=== PATIENT | male | born 1960 | race Caucasian/White ===

== ENCOUNTER → 2017-04-20 | Day surgery (SDC) | payer BC ==
[2017-04-09 08:54] VITALS: BMI 23.9
[~2017-04-20] MED LIST: BUPIVACAINE (PF) 0.25% 30 ML VIAL SQ ONE; GLYCOPYRROLATE 0.2 MG/ML 2 ML VIAL ONE; HEPARIN SODIUM,PORCINE 5,000 UNIT/ML 1 ML VIAL SQ ONE; HYDROcodone/APAP 7.5-325MG 1 EACH TAB PO ONE; HYDROmorphone (PF) 1 MG/ML ONE; LACTATED RINGERS 1,000 ML IV SCH; LIDOCAINE 1% INJ 10MG/ML (20 ML MDV) ONE; MIDAZOLAM 2 MG/2 ML VIAL ONE; NEOSTIGMINE 1 MG/ML 10 ML VIAL ONE; ONDANSETRON 4 MG/2 ML VIAL IVP ONE; PROPOFOL 10 MG/ML 20 ML VIAL IV ONE; ROCURONIUM BROMIDE 10 MG/ML 10 ML VIAL IV ONE; SCOPOLAMINE 1.5MG/72HR PATCH TRANSDERM ONE; SUCCINYLCHOLINE CHLORIDE 100 MG/5 ML SYR IV ONE; ceFAZolin IN SWFI 2 GM/20 ML SYRINGE IVP ONE; fentaNYL (PF) 50 MCG/ML 2 ML AMP ONE
[2017-04-20] MEDS: LIDOCAINE 1% 20 ML VIAL (10MG/ML) FOR IV START INTRADERMA PRN ×2 (10:27→10:36)
--- NOTE | 2017-04-20 10:55 | P.GSHP ---
History of Present Illness H&P Date: 04/20/17 Chief Complaint: Right inguinal hernia 's is a 56-year-old male referred from Dr. Konrad Davis patient has complaints of right groin mass. He was seen in the office and found have a reducible right inguinal hernia. He presents today for laparoscopic robotic- assisted repair of right inguinal hernia. Past Medical History Past Medical History: GERD/Reflux, Hyperlipidemia, Hypertension Additional Past Medical History / Comment(s): inguinal hernia,lost 25lbs and monitors diet-no tx for b/p,left torn rotator cuff History of Any Multi-Drug Resistant Organisms: None Reported Past Surgical History: Tonsillectomy Additional Past Surgical History / Comment(s): EGD,COLONOSCOPY Past Anesthesia/Blood Transfusion Reactions: Motion Sickness Additional Past Anesthesia/Blood Transfusion Reaction / Comment(s): no hx blood transfusion Smoking Status: Former smoker - Past Family History Brother(s) Family Medical History: Cancer Additional Family Medical History / Comment(s): ESOPHAGEAL CANCER,brain aneurysm Medications and Allergies Home Medications Medication Instructions Recorded Confirmed Type Multivitamin [Men's Multi-Vitamin] 1 each PO DAILY 11/14/15 04/09/17 History Aspirin 81 mg PO DAILY 04/09/17 04/09/17 History Meclizine HCl 25 mg PO DAILY PRN 04/09/17 04/09/17 History Naproxen [Naprosyn] 500 mg PO Q12HR PRN 04/09/17 04/09/17 History Pantoprazole Sodium 40 mg PO DAILY PRN 04/09/17 04/20/17 History Allergies Allergy/AdvReac Type Severity Reaction Status Date / Time prednisone AdvReac Severe severe Verified 04/20/17 10:26 hiccups Surgical - Exam Vital Signs Temp Pulse Resp BP Pulse Ox 98.8 F 59 L 18 149/78 99 04/20/17 10:23 04/20/17 10:23 04/20/17 10:23 04/20/17 10:23 04/20/17 10:23 - General well developed, no distress - Eyes PERRL - ENT normal pinna - Neck no masses - Respiratory normal expansion - Cardiovascular Rhythm: regular - Abdomen Abdomen: soft, non tender Assessment and Plan Assessment: Right inguinal hernia. We'll perform laparoscopic robotic-assisted repair.
[2017-04-20] MEDS: HYDROmorphone 0.5 MG/0.5 ML SYRINGE IVP PRN ×4 (12:30→13:10)
--- NOTE | 2017-04-20 12:30 | P.OP ---
Date of Procedure: 04/20/17 Preoperative Diagnosis: Right inguinal hernia Postoperative Diagnosis: Anal hernia Incarcerated umbilical hernia Procedure(s) Performed: Scopic robotic system repair of right inguinal hernia Laparoscopic repair of incarcerated umbilical hernia Excision incarcerated fat Anesthesia: INDERJIT Surgeon: Ton Davies Estimated Blood Loss (ml): 5 Pathology: other (Incarcerated umbilical fat) Condition: stable Disposition: PACU Description of Procedure: The patient's placed on the operating table in the supine position. The patient received general anesthesia. The patient's abdomen was prepped and draped in usual sterile fashion. The skin was anesthetized 1% local Xylocaine at the incision sites. Using an 11 blade a skin incision was made at the umbilicus. Patient was found have a small incarcerated umbilical hernia. The incarcerated fat within then the hernia was excised with the hernia sac. The fascia was grasped with a Desirae and then the peritoneal cavity was entered with the Veress needle. Position of the Veress needle was confirmed with a positive drop test. After adequate insufflation a 5 mm trocar was placed into the peritoneal cavity. The Laparoscope was placed the peritoneal cavity. And a robotic 8 mm trocar was placed in the right lateral position and then another 8 mm robotic trochars placed in the left lateral position. The original 5 mm trocar was exchanged for a 12 mm trocar. The patient was placed in reverse Trendelenburg and then the patient was docked to the robot. Next the peritoneum over top of the hernia was incised and then using blunt and sharp dissection and electrocautery the hernia sac was dissected free from the floor of the inguinal canal. The hernia sac was completely reduced into the peritoneal cavity. And then using the Pro toeing stockings mesh the hernia was repaired. The peritoneum was then sutured with 20V lock suture. The patient was then undocked the robot. The needle was withdrawn from the peritoneal cavity. The umbilical hernia site was closed with 0 Ethibond suture. The skin was closed interrupted 3-0 Monocryl suture. Dermabond dressing was applied. Patient was sent to recovery in stable condition.
[2017-04-20 12:31] VITALS: RESP 16; TEMP 98.6
[2017-04-20 16:41] VITALS: BP 137/79; PULSE 69
== END ==
LOC: OR 09:56
PROVIDERS: ATTEND Surgery
DX: K42.0 Umbilical hernia with obstruction, without gangrene (principal); K45.8 Other specified abdominal hernia without obstruction or gangrene; K21.9 Gastro-esophageal reflux disease without esophagitis; E78.5 Hyperlipidemia, unspecified; F17.210 Nicotine dependence, cigarettes, uncomplicated; I10 Essential (primary) hypertension; Z80.0 Family history of malignant neoplasm of digestive organs; Z79.82 Long term (current) use of aspirin; Z88.8 Allergy status to other drugs, medicaments and biological substances
CPT/HCPCS: 49653; 49659; S2900; 88302

== ENCOUNTER 2018-05-25 10:21 | Day surgery (SDC) | payer BC ==
[2018-05-20 08:58] VITALS: BMI 25.8
[~2018-05-25 10:21] MED LIST changes: -BUPIVACAINE (PF) 0.25% 30 ML VIAL SQ ONE; +DEXAMETHASONE SOD PHOSPHATE 10 MG/ML 1 ML VIAL IV ONE; -GLYCOPYRROLATE 0.2 MG/ML 2 ML VIAL ONE; -HYDROcodone/APAP 7.5-325MG 1 EACH TAB PO ONE; -HYDROmorphone (PF) 1 MG/ML ONE; +HYDROmorphone 0.5 MG/0.5 ML SYRINGE IVP PRN; +LIDOCAINE 1% 20 ML VIAL (10MG/ML) FOR IV START INTRADERMA PRN; -LIDOCAINE 1% INJ 10MG/ML (20 ML MDV) ONE; +MIDAZOLAM (PF) 2 MG/2 ML VIAL IV PRN; -MIDAZOLAM 2 MG/2 ML VIAL ONE; -NEOSTIGMINE 1 MG/ML 10 ML VIAL ONE; -PROPOFOL 10 MG/ML 20 ML VIAL IV ONE; -ROCURONIUM BROMIDE 10 MG/ML 10 ML VIAL IV ONE; -SUCCINYLCHOLINE CHLORIDE 100 MG/5 ML SYR IV ONE; -fentaNYL (PF) 50 MCG/ML 2 ML AMP ONE
[2018-05-25 11:29] VITALS: TEMP 97.6
[2018-05-25] MEDS ORDERED: LACTATED RINGERS 1,000 ML IV ONE ×4 (11:31)
--- NOTE | 2018-05-25 11:55 | P.GSHP ---
History of Present Illness H&P Date: 05/25/18 Chief Complaint: Recurrent right inguinal hernia This a 57-year-old male who presents today for open repair of recurrent right inguinal hernia. Patient developed a tender mass in his right groin. Past Medical History Past Medical History: GERD/Reflux, Hypertension Additional Past Medical History / Comment(s): inguinal hernia, TOOTH EXTRACTION 05/13/18, lost 25lbs and monitors diet-no tx for b/p, OCCASIONAL VERTIGO History of Any Multi-Drug Resistant Organisms: None Reported Past Surgical History: Hernia Repair, Tonsillectomy Additional Past Surgical History / Comment(s): EGD,COLONOSCOPY Past Anesthesia/Blood Transfusion Reactions: Motion Sickness Additional Past Anesthesia/Blood Transfusion Reaction / Comment(s): no hx blood transfusion Smoking Status: Current every day smoker - Past Family History Brother(s) Family Medical History: Cancer Additional Family Medical History / Comment(s): ESOPHAGEAL CANCER,brain aneurysm Medications and Allergies Home Medications Medication Instructions Recorded Confirmed Type Aspirin 81 mg PO DAILY 04/09/17 05/20/18 History Meclizine HCl 25 mg PO DAILY PRN 04/09/17 05/20/18 History Pantoprazole Sodium 40 mg PO DAILY PRN 04/09/17 05/20/18 History Amoxicillin 500 mg PO Q12HR 05/20/18 05/20/18 History Allergies Allergy/AdvReac Type Severity Reaction Status Date / Time prednisone AdvReac Severe severe Verified 05/20/18 08:51 hiccups Surgical - Exam Vital Signs Temp Pulse Resp BP Pulse Ox 97.6 F 55 L 18 127/65 99 05/25/18 11:27 05/25/18 11:27 05/25/18 11:27 05/25/18 11:27 05/25/18 11:27 - General well developed, well nourished, no distress - Eyes PERRL - ENT normal pinna - Neck no masses - Respiratory normal expansion - Cardiovascular Rhythm: regular - Abdomen Abdomen: soft, non tender Assessment and Plan Assessment: Recurrent radial hernia. We'll perform open repair.
[2018-05-25 12:03] VITALS: RESP 16
--- NOTE | 2018-05-25 12:04 | P.ONQ ---
Anesthesiology Proc Note - PNB - Peripheral Nerve Block Performed Right Transversus Abdominis Single Time Out Performed: Yes Procedure Start Time: 11:54 Procedure Stop Time: 12:02 Indication: Acute Post-Operative Pain, Requested by physician (Dr Davies) Sedation Type: Sedate with meaningful contact maintained Preparation: Sterile Prep Position: Supine Needle Types: Facet Needle Size: 100mm (4") Needle Gauge: 20 Technique: Ultrasound (Ultrasound image saved) Injectate: 0.5% Ropivacaine (see comment for volume) (30 mls) Blood Aspirated: No Pain Paresthesia on Injection Noted: No Resistance on Injection: Normal Events: Uneventful and Well Tolerated
[2018-05-25] MEDS ORDERED: PROPOFOL 10 MG/ML 20 ML VIAL IV ONE (12:21)
[2018-05-25] MEDS ORDERED: SUCCINYLCHOLINE CHLORIDE 100 MG/5 ML SYR IV ONE (12:21)
[2018-05-25] MEDS ORDERED: GLYCOPYRROLATE 0.2 MG/ML 2 ML VIAL ONE (12:21)
[2018-05-25] MEDS ORDERED: ROPIVACAINE 5 MG/ML 30 ML VIAL ONE (12:21)
[2018-05-25] MEDS ORDERED: NEOSTIGMINE 1 MG/ML 10 ML VIAL ONE (12:21)
[2018-05-25] MEDS ORDERED: LIDOCAINE 1% INJ 10MG/ML (20 ML MDV) ONE (12:21)
[2018-05-25] MEDS ORDERED: ROCURONIUM BROMIDE 10 MG/ML 10 ML VIAL IV ONE (12:21)
[2018-05-25] MEDS ORDERED: fentaNYL (PF) 50 MCG/ML 2 ML AMP ONE (12:21)
[2018-05-25] MEDS ORDERED: KETOROLAC 30 MG/ML 1 ML VIAL ONE (12:21)
[2018-05-25] MEDS ORDERED: BUPIVACAIN-EPI 0.5%-1:200,000 30 ML VIAL SQ ONE (12:53)
--- NOTE | 2018-05-25 13:05 | P.OP ---
Date of Procedure: 05/25/18 Preoperative Diagnosis: Recurrent left inguinal hernia Postoperative Diagnosis: Recurrent indirect left inguinal hernia Procedure(s) Performed: Open repair of recurrent left inguinal indirect inguinal hernia Anesthesia: INDERJIT Surgeon: Ton Davies Estimated Blood Loss (ml): 5 Pathology: none sent Condition: stable Disposition: PACU Description of Procedure: Patient's placed on the operating table in the supine position. He received general anesthesia. His abdomen was prepped and draped usual sterile fashion. The skin was anesthetized 1% local Xylocaine. A standard inguinal incision was made. And then using electrocautery the subcutaneous tissues were divided. The fascia external oblique was exposed. A week later retractors placed a wound. And then a incision on the fascia was made then using Metzenbaum scissors the fascia of the external oblique was opened. The cord section was dissected away from the floor of the inguinal canal. There was a recurrent indirect inguinal hernia seen medially to the cord. The hernia sac was dissected and inverted back into the peritoneal cavity. Using the Prolene hernia mesh plug the inferior leads were placed in the position of the indirect hernia space the superior leaf was attached to the pubic tubercle medially with 2-0 Prolene. Xena's fascia was closed with 2-0 Vicryl. Skin was closed interrupted 3-0 Monocryl suture. Dermabond dressing was applied. Patient top procedure well and was sent to recovery in stable condition.. The lateral leaf was incised and wrapped around the cord structures. And secured with 2-0 Prolene suture.
[2018-05-25 14:10] VITALS: BP 163/75; PULSE 61
--- NOTE | 2018-05-27 16:50 | CDI ---
Date: 05/27/18 CDS/Accounting Administrator Name: Jacquie Casey Phone: If any questions, call Geovanna Shipman Sales Development Coordinator at [phone] Patient Name: Tiago Pruett Admit Date: 05/25/18 Discharge Date: 05/25/18 ATTENTION: The [facility] Coding Staff appreciate your assistance in clarifying documentation. Please respond to the clarification below the line at the bottom and electronically sign. The [facility] Coding staff will review the response and follow-up if needed. Please note: Queries are made part of the Legal Health Record. If you have any questions, please contact the Sales Development Coordinator. Dear Dr. Davies, Please provide clarification as to the laterality of the hernia. H&P states right hernia The operative report states left hernia. The Anesth Block note states that the injection was given on the right. Please clarify/amend your op report. Thank you for your kind consideration. ____ The operative note has been changed to right inguinal hernia MTDD
== END 2018-05-25 14:58 | disposition home or self-care (01) ==
LOC: OR 10:21
PROVIDERS: ATTEND Surgery
DX: K40.91 Unilateral inguinal hernia, without obstruction or gangrene, recurrent (principal); K21.9 Gastro-esophageal reflux disease without esophagitis; I10 Essential (primary) hypertension; F17.200 Nicotine dependence, unspecified, uncomplicated; Z80.0 Family history of malignant neoplasm of digestive organs; Z79.82 Long term (current) use of aspirin; Z88.8 Allergy status to other drugs, medicaments and biological substances
CPT/HCPCS: 49520; 64486; C1781; J1644; J2710; J2405; J2001; J3010; J1885; J2795; J0330; J2704; J0690; J2250

== ENCOUNTER → 2021-05-05 | Outpatient (CLI) | payer BC ==
--- NOTE | 2021-05-06 04:11 | MR ---
EXAMINATION TYPE: MR brain and iac wo/w con DATE OF EXAM: 05/05/2021 COMPARISON: None HISTORY: Right severly asymmetric SNHL CONTRAST: Standard multiplanar, multisequence MRI departmental protocol images were obtained without contrast a nd with 7 mL intravenous Gadavist gadolinium contrast. Ventricles are fairly normal size. There is no mass effect or midline shift. There is no sign of intr acranial hemorrhage. Diffusion images show no evidence of acute infarct. There is 5 mm focus of incre ased signal in the white matter left posterior temporal lobe. The brainstem appears intact. There is mucosal thickening in the frontal ethmoid and sphenoid and maxillary sinuses. The sella turcica appea rs normal. Corpus callosum is intact. Thin sections through the posterior fossa show normal internal auditory canals. The acoustic nerve an d vestibular nerve appear normal. There is no evidence of cerebellopontine angle mass. Contrast images show no pathologic enhancement. IMPRESSION: There is pansinusitis. No focal posterior fossa abnormality. Small isolated focus of increased signal in the left posterior temporal lobe white matter could relat e to microvascular ischemia. No evidence of cortical infarct.
== END | disposition home or self-care (01) ==
LOC: RADMRIMAIN 17:44
PROVIDERS: ATTEND Nurse Practitioner Family
DX: J32.4 Chronic pansinusitis (principal); R90.89 Other abnormal findings on diagnostic imaging of central nervous system
CPT/HCPCS: 70553; A9585

== ENCOUNTER 2021-07-08 12:22 | Emergency (ER) | payer BC ==
[2021-07-08 12:42] VITALS: RESP 18
[2021-07-08] MEDS ORDERED: IBUPROFEN 600 MG TAB PO STA (13:16)
[2021-07-08] MEDS ORDERED: ACETAMINOPHEN TAB 500 MG TAB PO STA (13:16)
--- NOTE | 2021-07-08 13:20 | ED ---
General Adult HPI - General Source: patient, family, RN notes reviewed, old records reviewed Mode of arrival: ambulatory <Brent Jordan - Last Filed: 07/08/21 14:47> <Collin Boss - Last Filed: 07/08/21 15:45> - General Chief complaint: Chest Pain Stated complaint: Chest Pain, Shortness of Breath Time Seen by Provider: 07/08/21 12:45 - History of Present Illness Initial comments: This is a 60-year-old male who presents emergency department stating that last night he started coughing quite a bit and he states is extremely hard and then he started having sharp chest pains all over his chest. Patient states he was also feeling very hot but he wasn't sweating. Patient states he also had the chills. Patient denies any abdominal pain patient denies any nausea vomiting. Patient states this morning he continued to have the chills and feeling hot he has occasional sharp chest pains. Patient states that continues to cough not as bad as last night though. Patient states he did give the COVID vaccine and he also got the influenza vaccine. Patient complains of a mild headache. (Brent Jordan) - Related Data Home Medications Medication Instructions Recorded Confirmed Famotidine [Pepcid] 40 mg PO DAILY PRN 07/08/21 07/08/21 Allergies Allergy/AdvReac Type Severity Reaction Status Date / Time prednisone AdvReac Severe severe Verified 07/08/21 13:45 hiccups Review of Systems ROS Other: All systems not noted in ROS Statement are negative. <Brent Jordan - Last Filed: 07/08/21 14:47> ROS Other: All systems not noted in ROS Statement are negative. <Collin Boss - Last Filed: 07/08/21 15:45> ROS Statement: Those systems with pertinent positive or pertinent negative responses have been documented in the HPI. Past Medical History Past Medical History: GERD/Reflux, Hyperlipidemia, Hypertension Additional Past Medical History / Comment(s): inguinal hernia, TOOTH EXTRACTION 05/13/18, lost 25lbs and monitors diet-no tx for b/p, OCCASIONAL VERTIGO History of Any Multi-Drug Resistant Organisms: None Reported Past Surgical History: Hernia Repair, Tonsillectomy Additional Past Surgical History / Comment(s): EGD,COLONOSCOPY Past Anesthesia/Blood Transfusion Reactions: Motion Sickness Additional Past Anesthesia/Blood Transfusion Reaction / Comment(s): no hx blood transfusion Past Psychological History: No Psychological Hx Reported Smoking Status: Never smoker Past Alcohol Use History: Occasional Past Drug Use History: None Reported - Past Family History Brother(s) Family Medical History: Cancer Additional Family Medical History / Comment(s): ESOPHAGEAL CANCER,brain aneurysm <Matt Jordane - Last Filed: 07/08/21 14:47> General Exam <Jordan,Brent - Last Filed: 07/08/21 14:47> - General Exam Comments Initial Comments: GENERAL: Patient is well-developed and well-nourished. Patient is nontoxic and well-hydrated and is in mild distress. ENT: Neck is soft and supple. No significant lymphadenopathy is noted. Oropharynx is clear. Moist mucous membranes. Neck has full range of motion without eliciting any pain. EYES: The sclera were anicteric and conjunctiva were pink and moist. Extraocular movements were intact and pupils were equal round and reactive to light. Eyelids were unremarkable. PULMONARY: Unlabored respirations. Good breath sounds bilaterally. No audible rales rhonchi or wheezing was noted. CARDIOVASCULAR: There is a regular rate and rhythm without any murmurs gallops or rubs. ABDOMEN: Soft and nontender with normal bowel sounds. SKIN: Skin is clear with no lesions or rashes and otherwise unremarkable. NEUROLOGIC: Patient is alert and oriented x3. Cranial nerves II through XII are grossly intact. Motor and sensory are also intact. Normal speech, volume and content. Symmetrical smile. MUSCULOSKELETAL: Normal extremities with adequate strength and full range of motion. No lower extremity swelling or edema. No calf tenderness. LYMPHATICS: No significant lymphadenopathy is noted PSYCHIATRIC: Normal psychiatric evaluation. (Brent Jordan) Course Vital Signs 07/08/21 07/08/21 12:36 15:09 Temperature 101.5 F H 101.2 F H Pulse Rate 65 75 Respiratory 18 18 Rate Blood Pressure 178/65 135/61 O2 Sat by Pulse 98 95 Oximetry Medical Decision Making - Lab Data Result diagrams: 07/08/21 13:28 07/08/21 13:28 <JordanSergio ruedaBrent - Last Filed: 07/08/21 14:47> - Lab Data Result diagrams: 07/08/21 13:28 07/08/21 13:28 - Radiology Data Radiology results: image reviewed (Chest x-ray shows no acute process) <Collin Boss - Last Filed: 07/08/21 15:45> - Medical Decision Making EKG shows sinus rhythm at 66 bpm [place] interval 140 1Q is a 77 QT interval 3.8 QTC is 361. Patient's EKG shows no ST segment elevation or depression. Dr. Boss be taking over the care of this patient at 3 PM. (Brent Jordan) Patient endorsed to me for probable discharge if troponin negative. Patient did test positive for COVID-19 and oral prescription Paxlovid sent to pharmacy. Patient reevaluated and resting comfortably in bed. Patient and family updated. Patient states his symptoms were similar to previous reflux. Patient states he did take Pepcid and Maalox that resolved his symptoms. (Collin Boss) - Lab Data Lab Results 07/08/21 07/08/21 07/08/21 Range/Units 13:28 13:28 13:28 WBC 5.6 (3.8-10.6) k/uL RBC 5.01 (4.30-5.90) m/uL Hgb 15.7 (13.0-17.5) gm/dL Hct 48.9 (39.0-53.0) % MCV 97.6 (80.0-100.0) fL MCH 31.2 (25.0-35.0) pg MCHC 32.0 (31.0-37.0) g/dL RDW 12.2 (11.5-15.5) % Plt Count 177 (150-450) k/uL MPV 8.5 Neutrophils % 72 % Lymphocytes % 10 % Monocytes % 11 % Eosinophils % 2 % Basophils % 3 % Neutrophils # 4.1 (1.3-7.7) k/uL Lymphocytes # 0.5 L (1.0-4.8) k/uL Monocytes # 0.6 (0-1.0) k/uL Eosinophils # 0.1 (0-0.7) k/uL Basophils # 0.2 (0-0.2) k/uL Sodium 139 (137-145) mmol/L Potassium 4.2 (3.5-5.1) mmol/L Chloride 104 (98-107) mmol/L Carbon Dioxide 28 (22-30) mmol/L Anion Gap 7 mmol/L BUN 12 (9-20) mg/dL Creatinine 1.00 (0.66-1.25) mg/dL Est GFR (CKD-EPI)AfAm >90 (>60 ml/min/1.73 sqM) Est GFR (CKD-EPI)NonAf 82 (>60 ml/min/1.73 sqM) Glucose 84 (74-99) mg/dL Plasma Lactic Acid Merritt (0.7-2.0) mmol/L Calcium 8.9 (8.4-10.2) mg/dL Total Bilirubin 0.9 (0.2-1.3) mg/dL AST 22 (17-59) U/L ALT 19 (4-49) U/L Alkaline Phosphatase 46 (38-126) U/L Troponin I (0.000-0.034) ng/mL Total Protein 6.9 (6.3-8.2) g/dL Albumin 4.2 (3.5-5.0) g/dL Urine Color Urine Appearance (Clear) Urine pH (5.0-8.0) Ur Specific [place] (1.001-1.035) Urine Protein (Negative) Urine Glucose (UA) (Negative) Urine Ketones (Negative) Urine Blood (Negative) Urine Nitrite (Negative) Urine Bilirubin (Negative) Urine Urobilinogen (<2.0) mg/dL Ur Leukocyte Esterase (Negative) Influenza Type A (PCR) Not Detected (Not Detectd) Influenza Type B (PCR) Not Detected (Not Detectd) RSV (PCR) Not Detected (Not Detectd) SARS-CoV-2 (PCR) Detected A (Not Detectd) 07/08/21 07/08/21 07/08/21 Range/Units 13:28 14:15 14:50 WBC (3.8-10.6) k/uL RBC (4.30-5.90) m/uL Hgb (13.0-17.5) gm/dL Hct (39.0-53.0) % MCV (80.0-100.0) fL MCH (25.0-35.0) pg MCHC (31.0-37.0) g/dL RDW (11.5-15.5) % Plt Count (150-450) k/uL MPV Neutrophils % % Lymphocytes % % Monocytes % % Eosinophils % % Basophils % % Neutrophils # (1.3-7.7) k/uL Lymphocytes # (1.0-4.8) k/uL Monocytes # (0-1.0) k/uL Eosinophils # (0-0.7) k/uL Basophils # (0-0.2) k/uL Sodium (137-145) mmol/L Potassium (3.5-5.1) mmol/L Chloride (98-107) mmol/L Carbon Dioxide (22-30) mmol/L Anion Gap mmol/L BUN (9-20) mg/dL Creatinine (0.66-1.25) mg/dL Est GFR (CKD-EPI)AfAm (>60 ml/min/1.73 sqM) Est GFR (CKD-EPI)NonAf (>60 ml/min/1.73 sqM) Glucose (74-99) mg/dL Plasma Lactic Acid [place]itt 1.1 (0.7-2.0) mmol/L Calcium (8.4-10.2) mg/dL Total Bilirubin (0.2-1.3) mg/dL AST (17-59) U/L ALT (4-49) U/L Alkaline Phosphatase (38-126) U/L Troponin I <0.012 (0.000-0.034) ng/mL Total Protein (6.3-8.2) g/dL Albumin (3.5-5.0) g/dL Urine Color Yellow Urine Appearance Clear (Clear) Urine pH 6.5 (5.0-8.0) Ur Specific [place] 1.024 (1.001-1.035) Urine Protein Trace H (Negative) Urine Glucose (UA) Negative (Negative) Urine Ketones Negative (Negative) Urine Blood Negative (Negative) Urine Nitrite Negative (Negative) Urine Bilirubin Negative (Negative) Urine Urobilinogen <2.0 (<2.0) mg/dL Ur Leukocyte Esterase Negative (Negative) Influenza Type A (PCR) (Not Detectd) Influenza Type B (PCR) (Not Detectd) RSV (PCR) (Not Detectd) SARS-CoV-2 (PCR) (Not Detectd) Disposition <Brent Jordan - Last Filed: 07/08/21 14:47> Is patient prescribed a controlled substance at d/c from ED?: No Time of Disposition: 15:45 <Collin Boss - Last Filed: 07/08/21 15:45> Clinical Impression: COVID-19 Disposition: HOME SELF-CARE Condition: Stable Instructions (If sedation given, give patient instructions): Chest Pain (ED), COVID-19 (Coronavirus Disease 2019) (ED) Additional Instructions: Please do follow-up to primary care physician next day or 2 for recheck. [id number] vitamin C, vitamin D, and zinc. Over the counter Tylenol or Motrin as needed. Prescription has been sent to [place] pharmacy, please do start this today. Referrals: Konrad Avina DO [Primary Care Provider] - 1-2 days
[2021-07-08 13:39] LABS: Basophils # (A) 0.2 k/uL (0-0.2); Basophils % (A) 3 %; Eosinophils # (A) 0.1 k/uL (0-0.7); Eosinophils % (A) 2 %; HCT 48.9 % (39.0-53.0); HGB 15.7 gm/dL (13.0-17.5); Lymphocytes # (A) 0.5 k/uL (1.0-4.8); Lymphocytes % (A) 10 %; MCH 31.2 pg (25.0-35.0); MCV 97.6 fL (80.0-100.0); Mean Platelet Volume 8.5; Monocytes # (A) 0.6 k/uL (0-1.0); Monocytes % (A) 11 %; Neutrophils # (A) 4.1 k/uL (1.3-7.7); Neutrophils % (A) 72 %; Platelet Count 177 k/uL (150-450); RBC 5.01 m/uL (4.30-5.90); RDW 12.2 % (11.5-15.5); WBC 5.6 k/uL (3.8-10.6)
[2021-07-08 13:58] LABS: ALT 19 U/L (4-49); AST 22 U/L (17-59); African American GFR (CKD) >90 (>60 ml/min/1.73 sqM); Albumin 4.2 g/dL (3.5-5.0); Alkaline Phosphatase 46 U/L (38-126); Anion Gap 7 mmol/L; Blood Urea Nitrogen 12 mg/dL (9-20); Calcium 8.9 mg/dL (8.4-10.2); Carbon Dioxide 28 mmol/L (22-30); Chloride 104 mmol/L (98-107); Glucose 84 mg/dL (74-99); Non-African American GFR(CKD) 82 (>60 ml/min/1.73 sqM); Potassium 4.2 mmol/L (3.5-5.1); Sodium 139 mmol/L (137-145); Total Bilirubin 0.9 mg/dL (0.2-1.3); Total Protein 6.9 g/dL (6.3-8.2)
[2021-07-08] MEDS: SODIUM CHLORIDE 0.9% 500 ML 500 ML IV SCH (14:16)
[2021-07-08 14:26] LABS: Appearance,Urine Clear (Clear); Bilirubin,Urine Negative (Negative); Blood,Urine Negative (Negative); Color,Urine Yellow; Glucose,Urine (UA) Negative (Negative); Ketones,Urine Negative (Negative); Leukocyte Esterase,Urine Negative (Negative); Nitrite,Urine Negative (Negative); PH, Urine 6.5 (5.0-8.0); Protein,Urine Trace (Negative); Specific Gravity,Urine 1.024 (1.001-1.035); Urobilinogen,Urine <2.0 mg/dL (<2.0)
--- NOTE | 2021-07-08 14:44 | XR ---
EXAMINATION TYPE: XR chest 2V DATE OF EXAM: 07/08/2021 COMPARISON: NONE TECHNIQUE: PA and lateral views submitted. HISTORY: Difficulty breathing FINDINGS: The lungs are clear and there is no pneumothorax, pleural effusion, or focal pneumonia. Heart size is mildly prominent. Hyperinflation suggests COPD. Hypertrophic and degenerative change of the spine. No overt failure. Biapical pleural thickening. IMPRESSION: 1. No acute process.
[2021-07-08 15:10] VITALS: BP 135/61; PULSE 75; TEMP 101.2
== END 2021-07-08 16:10 | disposition home or self-care (01) ==
LOC: EC 12:22
DX: U07.1 COVID-19 (principal); K21.9 Gastro-esophageal reflux disease without esophagitis; E78.5 Hyperlipidemia, unspecified; I10 Essential (primary) hypertension
CPT/HCPCS: 36415; 71046; 80053; 81003; 83605; 84484; 85025; 87636; 93005; 96360; 99285

== ENCOUNTER → 2023-04-23 | Outpatient (CLI) | payer BC ==
--- NOTE | 2023-04-23 11:21 | XR ---
EXAMINATION TYPE: XR lumbosacral spine min 4V DATE OF EXAM: 04/23/2023 10:56 AM CLINICAL INDICATION:Male, 62 years old with history of [id number] IDD,LUMBAGO; [facility] COMPARISON: None TECHNIQUE: XR lumbosacral spine min 4V - Frontal, lateral , bilateral oblique and coned in L5-S1 late ral views of the spine. FINDINGS: No evidence of any acute osseous pathology. No evidence of loss of vertebral body height i s seen. There is normal alignment of the lumbar vertebral bodies. Mild scattered disc space narrowing . Multilevel marginal osteophyte formation throughout the visualized spine. There is facet joint arth ropathy throughout the spine. Scattered at least mild neural foraminal stenosis. IMPRESSION: 1. No acute fracture. 2. Moderate multilevel disc degeneration.
== END | disposition home or self-care (01) ==
LOC: RADXRYALE 10:29
PROVIDERS: ATTEND Physician Assistant Medical
DX: M54.41 Lumbago with sciatica, right side (principal); M51.37 Other intervertebral disc degeneration, lumbosacral region
CPT/HCPCS: 72110

== ENCOUNTER → 2024-06-28 | Outpatient (CLI) | payer BC ==
--- NOTE | 2024-06-28 12:24 | XR ---
EXAMINATION TYPE: XR Hip Bilateral Complete DATE OF EXAM: 06/28/2024 9:36 AM COMPARISON: CLINICAL INDICATION: Male, 63 years old with history of [id number] JAVI HIP PAIN; [facility], pain TECHNIQUE: 2 views each side FINDINGS: There is mild spurring along the lateral margin of the acetabulum on both sides. Relative preservatio n of hip joint space bilaterally. SI joints appear symmetric and intact. No acute fracture, subluxati on, dislocation. IMPRESSION: Mild early degenerative spurring at both hips. No acute osseous abnormality seen. [facility], Workstation: [facility], 06/28/2024 12:21 PM
== END | disposition home or self-care (01) ==
LOC: RADXRYALE 09:01
PROVIDERS: ATTEND Physician Assistant Medical
DX: M16.0 Bilateral primary osteoarthritis of hip (principal)
CPT/HCPCS: 73521